=== PATIENT | male | born 2000 | race Caucasian/White ===

== ENCOUNTER 2021-08-13 18:12 | Outpatient (REF) | payer OTHER, SELFPAY ==
[2021-08-15 17:20] LABS: COVID-19 RT-PCR UVMMC Result Negative (Negative)
== END 2021-08-13 18:13 | disposition home or self-care (01) ==
LOC: LBN 18:12
PROVIDERS: Visit Provider Physician Assistant
DX: Z20.822 Contact with and (suspected) exposure to COVID-19 (principal)
CPT/HCPCS: U0003